=== PATIENT | male | born 1940 | race Caucasian/White ===

== ENCOUNTER 2021-06-25 12:46 | Emergency (ER) | payer OTHER ==
[2021-06-25] MEDS ORDERED: Ondansetron 4 MG/2 ML SDV IVPUSH ONE (14:19)
[2021-06-25] MEDS ORDERED: Morphine 4 MG/ML VIAL IVPUSH ONE (14:19)
[2021-06-25] MEDS ORDERED: Lactated Ringers 1,000 ML IV SCH (14:30)
[2021-06-25] MEDS ORDERED: Propofol 200 MG/20 ML SDV IVPUSH ONE (14:52)
== END 2021-06-25 16:30 | disposition home or self-care (01) ==
LOC: MW.ED 12:46
DX: S52.501A Unspecified fracture of the lower end of right radius, initial encounter for closed fracture (principal); S52.601A Unspecified fracture of lower end of right ulna, initial encounter for closed fracture; E78.00 Pure hypercholesterolemia, unspecified; I10 Essential (primary) hypertension; K21.9 Gastro-esophageal reflux disease without esophagitis; Z79.899 Other long term (current) drug therapy; W00.0XXA Fall on same level due to ice and snow, initial encounter
CPT/HCPCS: 29125; 73100; 73110; 96374; 96375; 99283; J2270; J2405; J2704; J7120

== ENCOUNTER 2021-06-28 07:46 | Day surgery (SDC) | payer OTHER ==
[~2021-06-28 07:46] MED LIST: Albuterol 0.083% 2.5 MG/3 ML Neb Soln NEB PRN; HYDROmorphone 1 MG/ML Syringe IVPUSH PRN; Lactated Ringers 1,000 ML IV SCH; Metoclopramide 10 MG/2 ML SDV IVPUSH PRN; Morphine 4 MG/ML VIAL IVPUSH PRN; Naloxone 0.4 MG/ML SDV IVPUSH PRN; Ondansetron 4 MG/2 ML SDV IVPUSH PRN; fentaNYL 100 MCG/2 ML SDV IVPUSH PRN
[2021-06-28] MEDS ORDERED: ceFAZolin 2 GM in Premix Bag 1 BAG IV SCH (08:00)
[2021-06-28] MEDS ORDERED: Bupivacaine 0.5% 30 ML SDV ONE ×2 (08:06→10:25)
[2021-06-28] MEDS ORDERED: Lidocaine 2% 5 ML SDV ONE (08:06)
[2021-06-28] MEDS ORDERED: EPINEPHrine 1 MG/1 ML Amp ONE (08:07)
[2021-06-28] MEDS ORDERED: Ondansetron 4 MG/2 ML SDV ONE (10:00)
[2021-06-28] MEDS ORDERED: Propofol 200 MG/20 ML SDV ONE (10:01)
[2021-06-28] MEDS ORDERED: fentaNYL 100 MCG/2 ML SDV ONE (10:01)
[2021-06-28] MEDS ORDERED: Midazolam 1 MG/ML 2 ML SDV ONE (10:01)
[2021-06-28] MEDS ORDERED: Bupivacaine 0.25% 10 ML SDV ONE (10:28)
== END 2021-06-28 12:30 | disposition home or self-care (01) ==
LOC: MW.SDS 07:46
PROVIDERS: ATTEND Orthopaedic Surgery
DX: S52.551A Other extraarticular fracture of lower end of right radius, initial encounter for closed fracture (principal); N40.0 Benign prostatic hyperplasia without lower urinary tract symptoms; N52.9 Male erectile dysfunction, unspecified; E78.00 Pure hypercholesterolemia, unspecified; I10 Essential (primary) hypertension; E05.90 Thyrotoxicosis, unspecified without thyrotoxic crisis or storm; N39.0 Urinary tract infection, site not specified; K21.9 Gastro-esophageal reflux disease without esophagitis; Z90.49 Acquired absence of other specified parts of digestive tract; Z79.82 Long term (current) use of aspirin; Z79.899 Other long term (current) drug therapy; Z87.891 Personal history of nicotine dependence
CPT/HCPCS: 25606; 76000; J0131; J0171; J2405; J2704; J3010; J3490; J7120; J2250